=== PATIENT | female | born 1990 | race Caucasian/White ===

== ENCOUNTER → 2024-03-16 08:01 | Outpatient (REF) | payer OTHER, SELFPAY | LOC: HWRAD 08:01 | PROVIDERS: ATTENDING PHYSICIAN Family Medicine | DX: R10.11 Right upper quadrant pain (principal) | CPT/HCPCS: 76700 ==

== ENCOUNTER → 2024-06-14 07:54 | Outpatient (REF) | payer OTHER, SELFPAY | LOC: HWRAD 07:54 | PROVIDERS: ATTENDING PHYSICIAN Family Medicine | DX: R10.31 Right lower quadrant pain (principal) | CPT/HCPCS: 76830; 76856 ==

== ENCOUNTER 2025-04-04 06:03 | Day surgery (SDC) | payer OTHER, SELFPAY ==
[2025-04-04 08:08] VITALS: BMI 46.1
[2025-04-04 08:11] VITALS: BP 122/96
[2025-04-04 08:14] VITALS: BMI 46.1
[2025-04-04 11:04] VITALS: BP 122/60
[2025-04-04 11:17] VITALS: BP 120/52
[2025-04-04 11:23] VITALS: BP 121/80
== END 2025-04-04 11:35 | disposition home or self-care (01) ==
LOC: SDS 06:03
PROVIDERS: ATTENDING PHYSICIAN Internal Medicine
DX: K63.5 Polyp of colon (principal); K29.70 Gastritis, unspecified, without bleeding; R10.31 Right lower quadrant pain; R10.13 Epigastric pain
CPT/HCPCS: 45380; 43239; 88305; 88342

== ENCOUNTER 2025-05-07 08:35 | Emergency (ER) | payer OTHER, SELFPAY ==
[2025-05-07 08:44] VITALS: BP 153/101
--- NOTE | 2025-05-07 09:30 | ED.GENMED ---
History of Present Illness
General
Chief Complaint: Headache
Source: patient and spouse
Exam Limitations: none
Time Seen by Provider: 05/07/25 09:08
Nursing documentation reviewed up to this point in time: agreed with
History of Present Illness
History of Present Illness:
35-year-old female with a past medical history as noted presents to the ER for evaluation of headache and neck pain as well as chest pain. Patient reports that she has been dealing with headache for the past year or so. She describes a pressure
sensation left side of her head radiates behind her left ear. She reports associated left-sided neck pain. She says that she has had daily symptoms for about a year now. She has associated chronic congestion, chronic sore throat. She says that
she thinks she may have inflamed lymph nodes although she has never felt an enlarged lymph node. She says she has had pressure in her ear. Denies any drainage, ear pain or hearing loss. She denies any change in vision. She denies any focal
weakness or numbness in her extremities. In addition to these more chronic symptoms which she feels are generally worsening she says that yesterday she was having some pain in the left side of her chest intermittently all night. Thankfully this
chest pain seems to have resolved. Given this new symptom in the context of progression of chronic symptoms she ultimately opted to come to the ER for assessment. She says she has been at least initially evaluated for her chronic headaches and
neck pain by her primary doctor; she says that she also saw a project internship for chronic bronchitis and with her chronic congestion and headaches she was referred to an chief engineer but has never seen ENT or had any imaging of her head or neck.
Past History
Past History
ED Past Medical History: Other (Nonspecific chest pain, palpitations)
ED Past Surgical History: None
Social History
Tobacco: Non-smoker
Alcohol: None
Personal:
Living: with family
Employment: Employed
Family History
Family History: Hypertension and Other (Grandfather had CABG)
Review of Systems
Review of Systems
All Other Systems: ROS reviewed and negative except as documented in HPI and ROS
Constitutional: Denies fever or chills
EENT: Reports sore throat and other (Congestion)
Respiratory: Reports cough; Denies trouble breathing
Cardiac: Reports chest pain; Denies palpitations
ABD/GI: Denies abdominal pain, nausea or vomiting
: Denies flank pain
Musculoskeletal: Reports neck pain; Denies back pain
Neurological: Reports headache; Denies dizzy, weakness or numbness
Phy Exam
Physical Exam
Physical Exam:
General: Awake, alert, oriented x3; somewhat anxious but in no acute distress
Head: Normocephalic, atraumatic
Eyes: Conjunctiva normal, EOMI, pupils equal round and reactive to light bilaterally
Ears: External ear normal bilaterally, no tenderness or redness of the mastoid processes bilaterally, ear canals are clear bilaterally, TMs clear bilaterally with good light reflex
Throat: Airway intact, handling secretions, no tonsillar erythema or exudate, midline uvula
Neck: Trachea midline, supple without meningismus, no palpable adenopathy, good range of motion with no pain
Lungs: Clear to auscultation bilaterally, no wheezing, rales, rhonchi
Heart: Tachycardia with regular rhythm, no murmurs, gallops, or rubs
Abd: Soft, non distended, nontender
Neuro: Cranial nerves grossly intact, speech fluid, motor and sensory intact, ambulatory
Skin: No rash noted
Extremities: No edema in extremities, warm and well-perfused
Scores
Heart Failure Risk
Heart Failure Risk Score: Not Applicable
Heart Score for Chest Pain Patients
STEMI patient?: No
History: Slightly or Non-Suspicious
ECG: Normal
Age: </= 45 years
Risk Factors: No Risk Factors
Troponin: </= Normal Limit
Heart Score for Chest Pain Patients: 0
Heart Score Risk: 2.5% MACE over next 6 weeks
Withdrawal Assessment of Alcohol
Withdrawal Assessment Completed?: Not applicable
Course
Orders/Labs/Results
Orders:
Orders
05/07/25 09:29
Electrocardiogram (*1) Urgent
Reason for Study: Chest Pain
CT Head & Neck Angio W/wo IV Urgent
Comment:
Reason For Exam: headache and left sided neck pain
EKG- Treatment ONCE
Test Result ONCE
CR Chest - 2 Views Urgent
Comment:
Reason For Exam: chest pain
05/07/25 10:01
COVID-19 Antigen Urgent
Source: Nasal Swab
Complete Blood Count/With Diff Urgent
Influenza A+B Rapid Molecular Urgent
MANUEL Source: Nasal Swab
Specimen Description:
05/07/25 10:02
Troponin I Urgent
05/07/25 10:32
Comprehensive Metabolic Panel Urgent
HCG, Serum Qualitative Screen Urgent
05/07/25 10:01
05/07/25 10:32
Vital Signs
Initial and Last Documented VS:
Initial Vital Signs
Temp Pulse Resp BP Pulse Ox
36.7 C 110 18 153/101 100
05/07/25 08:44 05/07/25 08:44 05/07/25 08:44 05/07/25 08:44 05/07/25 08:44
Last Documented Vital Signs
Temp Pulse Resp BP Pulse Ox
36.7 C 90 15 153/101 100
05/07/25 08:44 05/07/25 11:00 05/07/25 11:00 05/07/25 08:44 05/07/25 09:37
MDM/Problems Addressed
Differential Diagnosis Includes:
Chest/breast pain: GERD, costochondritis, pneumonia, pneumothorax, ACS considered less likely clinically; very low clinical suspicion for PE in my judgment no occasion for further evaluation this diagnosis
Headache/neck pain: Chronic sinus headache, tension headache, migraine headaches, aneurysm, dissection, brain mass
MDM/Problems Addressed:
35-year-old female presents for evaluation of headache and neck pain that have been progressing over the past year; last night also had an episode of chest pain seems to have resolved. She is hypertensive and tachycardic but appears to be anxious
here�vital signs improved by my assessment. Physical exam is as above. Plan to check an EKG. Will place an IV check labs including CBC and a CMP, troponin. Will check chest x-ray. Will check CTA head and neck for evaluation of worsening
headache and neck pain. Will reassess after the above.
Labs reviewed: CBC and CMP unremarkable. EKG shows sinus rhythm with no ischemia and troponin undetectable x 1 with symptoms occurring last night this is sufficient to rule out acute HI. Chest x-ray shows no acute disease. CTA head and neck no
acute abnormalities although prominent lymph nodes noted will need long-term follow-up. Provided a copy of the CT report for patient to follow-up. Overall I wonder symptoms could be from GERD which would explain chest pain as well as her chronic
sore throat/sinus symptoms and ear pressure. Reasonable to trial PPI. Will refer to ENT for outpatient follow-up. No indication for hospital admission at this point. Patient feels comfortable with this plan. All questions answered.
Chronic conditions affecting care:
Obesity
Acute Exacerbation and/or Progression of Chronic Illness:
Acutely hypertensive likely anxiety related; improved without intervention continue to monitor but no indication for emergent antihypertensives
Acute Exacerbation and/or Progression of Chronic Illness: HTN
*Radiology
Radiology exam reviewed: preliminary read by ED provider and radiology read reviewed
*Pulse Oximetry
SaO2: 100
Oxygen Mode of Delivery: Room air
Patient hypoxic: no (100%)
*EKG
Interpreted by ED Provider?: Yes
Heart Rate: 85
Rate: normal
Rhythm: sinus
[place]: normal axis
Interval: normal interval
QRS Pattern: normal QRS
Ischemia: no ischemia
*Critical Care Note
Total Time (30-74mins, 75-104mins- exclusive of procedures): Not Applicable
Data Reviewed
Source: patient and spouse
ED Attending Note
-
Portions of this chart may have been created with voice recognition software.� Occasional wrong word or��sound alike� substitutions may have occurred due to the inherent limitations of voice recognition software.
Discharge Plan
Departure
Patient Disposition: Home (Routine Discharge)
Date of Disposition: 05/07/25
Time of Disposition: 12:31
Patient with high blood pressure during this ER visit?: Yes
Discharge Problem:
Chronic headache, Chest pain
Instructions: Acid reflux and GERD in adults
Prescriptions:
New
pantoprazole 40 mg tablet,delayed release (DR/EC)
40 mg PO DAILY Qty: 30 0RF
Referrals:
Garrison Craft MD [Active, Otology] - Call in 1-3 days for appt
Serafin Lua MD [Active, Otology] - Call in 1-3 days for appt
Sebastian Macias DO [Family Provider, Family Practice]
Activity Restrictions/Additional Instructions:
Thank you for visiting the Emergency Department at [facility].
1. Please schedule a follow up appointment as directed. Call first thing tomorrow morning to make an appointment.
2. If indicated, please take your medications as instructed and indicated on discharge paperwork.
3. If any of your symptoms do not improve, or persist, or become more severe within 6-12 hours, please return to the emergency department for further care.
4. Please return to the emergency department if you develop a headache, neck pain/stiffness, fever greater than 100.4F, chest pain, shortness of breath, persistent nausea, vomiting, slurred speech, difficulty walking, numbness/tingling, weakness,
signs of infection or any other symptoms that are worrisome to you.
Please call [phone] if you have any questions.
Interventions
Interventions:
*Risk Screen - Suicide Last Done: 05/07/25 08:44
*General Assessment Last Done: 05/07/25 08:44
*Neglect/Abuse Screening Last Done: 05/07/25 08:44
ED- Neurological Assessment Last Done: 05/07/25 10:18
ED-Skin Assessment Last Done: 05/07/25 10:18
Discharge Date and Time
Print Language: BENGALI
[2025-05-07 10:21] LABS: Hematocrit 40.2 % (37.0-47.0); Hemoglobin 13.8 g/dL (12.0-16.0); Mean Corp Hgb Conc. 34.3 g/dL (33.0-37.0); Mean Corpuscular Volume 86.8 fL (81.0-99.0); Nucleated Red Blood Cells % 0 %; Platelet Count 311 10^3/uL (130-400); Red Cell Dist. Width 13.4 % (11.5-14.5)
[2025-05-07 10:34] LABS: COVID-19 Antigen Negative (Negative)
[2025-05-07 10:39] LABS: Troponin I < 0.012 ng/ml
[2025-05-07 10:59] LABS: HCG, Serum Qualitative Screen Negative
[2025-05-07 11:03] LABS: Albumin 4.6 g/dl (3.5-5.0); Blood Urea Nitrogen 11 mg/dl (7-17); Calcium 9.5 mg/dl (8.4-10.2); Carbon Dioxide 26 mmol/L (22-30); Glucose 83 mg/dl (70-99); Potassium 4.1 mmol/L (3.5-5.1); Total Protein 7.5 g/dl (6.3-8.2); eGFR > 60.00
[2025-05-07 11:17] LABS: ALT (SGPT) 28 U/L (0-35); AST (SGOT) 21 U/L (14-36); Alkaline Phosphatase 62 U/L (38-126); Chloride 104 mmol/L (98-107); Sodium 137 mmol/L (135-145)
== END 2025-05-07 12:43 | disposition home or self-care (01) ==
LOC: EMR 08:35
PROVIDERS: EMERGENCY PHYSICIAN Emergency Medicine; FAMILY PHYSICIAN Family Medicine
DX: R51.9 Headache, unspecified (principal); G89.29 Other chronic pain; R07.9 Chest pain, unspecified; M54.2 Cervicalgia; Z11.52 Encounter for screening for COVID-19
CPT/HCPCS: 99285; 70496; 70498; 71046; 80053; 84484; 84703; 85025; 87502; 87811; 93005; Q9967